=== PATIENT | male | born 1970 | race Caucasian/White ===

== ENCOUNTER → 2023-06-23 | Emergency (ER) | payer MEDICAID ==
[~2023-06-23] VITALS: Ht 167.6 cm; Wt 83.7 kg
[~2023-06-23] MED LIST: CEPH-585 PO; NAPR-56 PO; SULF1TAB49 PO
[2023-06-23 15:15] VITALS: BP 120/79; PULSE 79; RESP 18; TEMP 98; O2SAT 97
--- NOTE | 2023-06-23 15:19 | NUR ---
I have reviewed and agree with all interventions, assessments performed and documented by Juliana AGUIRRE LVN.
== END | disposition home or self-care (01) ==
LOC: ER 12:52
DX: L03.116 Cellulitis of left lower limb (principal)
CPT/HCPCS: 99283

== ENCOUNTER 2024-03-04 13:35 | Emergency (ER) | payer MEDICAID ==
[~2024-03-04] VITALS: Ht 165.1 cm; Wt 85.0 kg
[~2024-03-04 13:35] MED LIST changes: -NAPR-56 PO; -SULF1TAB49 PO
[2024-03-04 14:20] VITALS: BP 119/93; RESP 16; TEMP 97.8; O2SAT 98
[2024-03-04 14:33] LABS: BASOPHILS % (AUTO) 0.5 % (0-1); EOSINOPHILS # (AUTO) 0.4 X10'3 (0-0.9); EOSINOPHILS % (AUTO) 4.1 % (0-6); HEMATOCRIT 45.2 % (42.0-52.0); HEMOGLOBIN 15.3 g/dl (14.0-17.9); LYMPHOCYTES # (AUTO) 2.6 X10'3 (1.1-4.8); LYMPHOCYTES % (AUTO) 25.9 % (21-51); MEAN CORPUSCULAR HEMOGLOBIN 29.4 PG (27.0-31.0); MEAN CORPUSCULAR HGB CONC 33.8 g/dL (33.0-36.5); MEAN CORPUSCULAR VOLUME 86.8 FL (78-98); MONOCYTES # (AUTO) 0.7 X10'3 (0-0.9); MONOCYTES % (AUTO) 6.7 % (2-12); NEUTROPHILS # (AUTO) 6.3 X10'3 (1.8-7.7); NEUTROPHILS % (AUTO) 62.8 % (42-75); PLATELET COUNT 301 X10'3 (140-440); RED BLOOD COUNT 5.21 X10'6 (4.70-6.10); RED CELL DISTRIBUTION WIDTH 13.9 % (11.5-14.5); WHITE BLOOD COUNT 10.1 X10'3 (4.5-11.0)
[2024-03-04 15:00] LABS: ALANINE AMINOTRANSFERASE 31 U/L (12-78); ALBUMIN 3.5 G/DL (3.4-5.0); ALBUMIN/GLOBULIN RATIO 0.9 (1.1-1.5); ALKALINE PHOSPHATASE 134 IU/L (46-116); ANION GAP 11 (8-16); ASPARTATE AMINO TRANSFERASE 22 U/L (10-37); BILIRUBIN,TOTAL 0.5 MG/DL (0.1-1.0); BLOOD UREA NITROGEN 8 MG/DL (7-18); BUN/CREATININE RATIO 8.4 (10.0-20.0); CALCIUM 8.8 MG/DL (8.5-10.1); CHLORIDE 100 MMOL/L (99-107); CREATININE 0.95 MG/DL (0.60-1.10); GLUCOSE 157 MG/DL (70-104); PRO BRAIN NATRIURETIC PEPTIDE 65 PG/ML (0-125); SODIUM 136 MMOL/L (135-145); TOTAL CARBON DIOXIDE 24.6 MMOL/L (24-32); TOTAL PROTEIN 7.2 G/DL (6.4-8.2); eCRCL 80 ML/MIN; eGFR 84 ML/MIN
[2024-03-04] MEDS ORDERED: FAMO40TA58 PO (15:44)
[2024-03-04] MEDS ORDERED: MUPI15CR12 TOP (15:47)
[2024-03-04 15:51] VITALS: PULSE 80
== END 2024-03-04 15:53 | disposition home or self-care (01) ==
LOC: ER 13:36
DX: R07.89 Other chest pain (principal); Z79.2 Long term (current) use of antibiotics; Z79.899 Other long term (current) drug therapy
CPT/HCPCS: 36415; 71045; 80053; 83880; 84484; 85025; 93005; 99285